=== PATIENT | male | born 1990 | race Two or more races ===

== ENCOUNTER 2021-07-22 03:27 | Emergency (ER) | payer OTHER ==
[~2021-07-22] VITALS: Ht 180.3 cm; Wt 81.6 kg
[2021-07-22 03:43] LABS: BASOPHILS # (AUTO) 0.1 K/uL (0.0-0.2); BASOPHILS % (AUTO) 1.2 % (0.0-2.0); EOSINOPHILS % (AUTO) 2.4 % (0.0-6.0); HEMATOCRIT 45 % (39-51); HEMOGLOBIN 15.5 g/dL (13.5-17.5); LYMPHOCYTES # (AUTO) 4.1 K/uL (0.8-4.8); LYMPHOCYTES % (AUTO) 52.8 % (20.0-44.0); MEAN CORPUSCULAR HGB CONC 35 g/dl (31.0-36.0); MEAN CORPUSCULAR VOLUME 89 fL (80-96); MONOCYTES # (AUTO) 0.5 K/uL (0.1-1.30); MONOCYTES % (AUTO) 6.3 % (2.0-12.0); NEUTROPHILS # (AUTO) 2.9 K/uL (1.8-8.9); NEUTROPHILS % (AUTO) 37.3 % (43.0-81.0); PLATELET COUNT (AUTO) 237 K/uL (150-450); RED BLOOD CELL COUNT(AUTO) 5.05 MIL/uL (4.5-6.0); WHITE BLOOD COUNT (AUTO) 7.7 K/uL (4.3-11.0)
--- NOTE | 2021-07-22 03:45 | NUR ---
PT [id number]. LEFT SIDE CP NON RADIATING SHARP X 1400. PT A/O, RR EVEN AND UNLABORED, NO SOB NOTED. PT TAKEN TO ER BED 09. PT CONNECTED TO MONITORS.
[2021-07-22 03:53] LABS: CARBON DIOXIDE 25 mmol/L (21-32); CHLORIDE 104 mmol/L (98-107); CREATININE 1.1 mg/dL (0.6-1.3); GLUCOSE 142 mg/dL (74-106); POTASSIUM 3.7 mmol/L (3.5-5.1); SODIUM SERUM 140 mmol/L (136-145); UREA NITROGEN, BLOOD 16 mg/dL (7-18)
[2021-07-22 04:30] VITALS: BP 130/77
--- NOTE | 2021-07-22 04:55 | NUR ---
Patient discharged to home in stable condition. Written and verbal after care instructions given. Patient verbalizes understanding of instruction. IV removed. Catheter intact and site benign. Pressure and 4x4 applied to site. No bleeding noted.
== END 2021-07-22 04:58 | disposition home or self-care (01) ==
LOC: ER 03:31
DX: R07.89 Other chest pain (principal)
CPT/HCPCS: 36415; 71045-TC; 80048-TC; 84484-TC; 85025-TC

== ENCOUNTER 2023-03-22 16:52 | Emergency (ER) | payer OTHER ==
[~2023-03-22] VITALS: Ht 177.8 cm; Wt 81.6 kg
[2023-03-22 17:02] VITALS: BP 135/90; TEMP 98.2
[2023-03-22 18:26] LABS: BASOPHILS # (AUTO) 0.1 K/uL (0.0-0.2); BASOPHILS % (AUTO) 0.9 % (0.0-2.0); EOSINOPHILS # (AUTO) 0.2 K/uL (0.0-0.7); EOSINOPHILS % (AUTO) 3.4 % (0.0-6.0); HEMATOCRIT 48 % (39-51); HEMOGLOBIN 15.8 g/dL (13.5-17.5); LYMPHOCYTES # (AUTO) 2.9 K/uL (0.8-4.8); LYMPHOCYTES % (AUTO) 44.2 % (20.0-44.0); MEAN CORPUSCULAR HEMOGLOBIN 30 PG (26.0-33.0); MEAN CORPUSCULAR HGB CONC 33 g/dl (31.0-36.0); MEAN CORPUSCULAR VOLUME 90 fL (80-96); MONOCYTES # (AUTO) 0.6 K/uL (0.1-1.30); MONOCYTES % (AUTO) 9.7 % (2.0-12.0); NEUTROPHILS # (AUTO) 2.7 K/uL (1.8-8.9); NEUTROPHILS % (AUTO) 41.8 % (43.0-81.0); PLATELET COUNT (AUTO) 249 K/uL (150-450); RED BLOOD CELL COUNT(AUTO) 5.31 MIL/uL (4.5-6.0); RED CELL DISTRIBUTION WIDTH 14.3 % (11.5-15.0); WHITE BLOOD COUNT (AUTO) 6.5 K/uL (4.3-11.0)
[2023-03-22 18:32] LABS: CALCIUM, SERUM 9.6 mg/dL (8.5-10.1); POTASSIUM 3.9 mmol/L (3.5-5.1)
[2023-03-22 20:52] LABS: APPEARANCE,URINE CLEAR (CLEAR); BILIRUBIN,URINE NEGATIVE (NEGATIVE); BLOOD, URINE NEGATIVE Ery/uL (NEGATIVE); COLOR,URINE YELLOW (YELLOW); KETONES,URINE NEGATIVE (NEGATIVE); LEUKOCYTE ESTERASE ,URINE NEGATIVE (NEGATIVE); NITRITE, URINE NEGATIVE (NEGATIVE); PH,URINE 5.5 (5.0-8.0); PROTEIN,URINE NEGATIVE (NEGATIVE); UGLUCOSE NEGATIVE (NEGATIVE); UROBILINOGEN,URINE 0.2 EU/dL (0.2)
[2023-03-22] MEDS ORDERED: CYCL5TAB PO (20:58)
[2023-03-22] MEDS ORDERED: IBUP-1957 PO (20:58)
[2023-03-22 21:53] VITALS: O2SAT 100
== END 2023-03-22 21:54 | disposition home or self-care (01) ==
LOC: ER 16:58
DX: R10.31 Right lower quadrant pain (principal); R10.32 Left lower quadrant pain; I10 Essential (primary) hypertension; F41.9 Anxiety disorder, unspecified
CPT/HCPCS: 36415; 80048-TC; 85025-TC

== ENCOUNTER 2023-05-13 20:32 | Emergency (ER) | payer OTHER ==
[~2023-05-13] VITALS: Ht 180.3 cm; Wt 81.6 kg
[~2023-05-13 20:32] MED LIST: CYCL5TAB PO; IBUP-1957 PO
[2023-05-13 21:39] VITALS: BP 134/82; TEMP 98.5; O2SAT 96
[2023-05-13] MEDS ORDERED: IBUP-1955 PO (22:35)
[2023-05-13] MEDS ORDERED: ACET-2605 PO (22:35)
[2023-05-13] MEDS ORDERED: CYCL5TAB PO (22:35)
[2023-05-13] MEDS ORDERED: CYCLOBENZAPRINE 10 MG TABLET ONE (22:52)
[2023-05-13] MEDS ORDERED: ACETAMINOPHEN ES 500 MG TABLET ONE (22:52)
[2023-05-13] MEDS: CYCLOBENZAPRINE 10 MG TABLET PO ONE (22:55)
[2023-05-13] MEDS: ACETAMINOPHEN ES 500 MG TABLET PO ONE (22:55)
== END 2023-05-13 23:04 | disposition home or self-care (01) ==
LOC: ER 20:39
DX: G47.63 Sleep related bruxism (principal); R51.9 Headache, unspecified; I10 Essential (primary) hypertension; Z79.899 Other long term (current) drug therapy

== ENCOUNTER 2023-07-24 23:35 | Emergency (ER) | payer OTHER ==
[~2023-07-24] VITALS: Ht 177.8 cm; Wt 79.4 kg
[~2023-07-24 23:35] MED LIST changes: +ACET-2605 PO; +IBUP-1955 PO
[2023-07-25 00:08] VITALS: BP 130/83; TEMP 98.7; O2SAT 100
[2023-07-25] MEDS: IBUPROFEN 400 MG TABLET PO ONE (00:27)
== END 2023-07-25 00:27 | disposition home or self-care (01) ==
LOC: ER 23:45
DX: M79.601 Pain in right arm (principal); I10 Essential (primary) hypertension